=== PATIENT | male | born 1985 | race Caucasian/White ===

== ENCOUNTER 2018-06-25 10:55 | Emergency (ER) | payer BC ==
[~2018-06-25] VITALS: Ht 182.9 cm; Wt 84.1 kg
[2018-06-25 11:05] VITALS: Ht 182.9 cm; Wt 84.1 kg
[2018-06-25 17:43] VITALS: BP 144/70
== END 2018-06-25 17:30 | disposition other institution (70) ==
LOC: D.ER 10:55
DX: S42.002A Fracture of unspecified part of left clavicle, initial encounter for closed fracture (principal); S42.102A Fracture of unspecified part of scapula, left shoulder, initial encounter for closed fracture; V19.9XXA Pedal cyclist (driver) (passenger) injured in unspecified traffic accident, initial encounter; Y93.89 Activity, other specified; Y92.89 Other specified places as the place of occurrence of the external cause; S80.02XA Contusion of left knee, initial encounter

== ENCOUNTER 2019-04-22 09:33 | Day surgery (SDC) | payer BC ==
[~2019-04-22] VITALS: Ht 182.9 cm; Wt 88.5 kg
[2019-04-22 11:00] VITALS: BP 130/93; Ht 182.9 cm; Wt 88.5 kg
[2019-04-22] MEDS ORDERED: HYDROCODON-ACE1 EAC7 PO (16:25)
[2019-04-22] MEDS ORDERED: KEFLEX500 MG PO (16:26)
--- NOTE | 2019-04-22 17:25 | NUR ---
1626-REC'D FROM SURGERY. AWAKE AND ALERT,DRESSING TO LEFT HAND CDI. CAP REFILL WNL, ABLE TO WIGGLE DIGITS.VSS. PAIN CONSISTENT TO SURGERY. SPOUSE AT BEDSIDE,CL IN EASY REACH.
--- NOTE | 2019-04-22 17:26 | NUR ---
2795-FULL LIQUID TRAY TO ROOM.
--- NOTE | 2019-04-22 17:26 | NUR ---
1710-DISCHARGE CRITERIA MET. REMOVED IV FROM LEFT HAND WITH CATH INTACT,DISPOSED INTO SHARPS,COVERED SITE WITH BANDAID. BANDAGE CDI,CAP REFILL WNL,ABLE TO WIGGLE DIGITS. PAIN CONSISTENT TO SURGERY. VSS. REVIEWED DISCHARGE INSTRUCTIONS WITH PT,SPOUSE AT BEDSIDE.VERBALIZED UNDERSTANDING WITHOUT QUESTIONS OR CONCERNS. ESCORTED OUT VIA W/C WITH SPOUSE AWAITING TO DRIVE HOME.
--- NOTE | 2019-04-25 12:01 | OP ---
PATIENT NAME: RICARDO HUNT MEDICAL RECORD: [id number] :85 LOCATION:[facility] ADMISSION DATE: SURGEON: ERNIE HEWITT DO DATE OF OPERATION: 04/22/2019 PROCEDURE PERFORMED: Right fifth metacarpal closed reduction and percutaneous pinning. PREOPERATIVE DIAGNOSIS: Right fifth metacarpal neck fracture. POSTOPERATIVE DIAGNOSIS: Right fifth metacarpal neck fracture. INDICATIONS: Mr. Hunt is a 34-year-old male, who hit a metal door and sustained a fifth metacarpal neck fracture, was displaced and angulated greater than 50 degrees. I informed him of the risks and benefits of the procedure including infection, bleeding, damage to nerves or vessels, need for further surgery, displacement of fracture and that if we did not fix it, he would have an angulated hand and he may lose some extension and motion of the finger. I also informed him of the risk of malunion, nonunion, malrotation of that finger. He was okay with that and signed the consent. SURGEON: Ernie Hewitt DO DESCRIPTION OF PROCEDURE: The patient received ulnar block by anesthesia in the preoperative area and was then taken to the operative suite, given TIVA. The right upper extremity was then prepped and draped in sterile fashion. Time-out was performed. Everyone was in agreement with the correct side, site, patient, and procedure. Reduction maneuver was then made. The pin was placed retrograde from the ulnar side through the fracture, across it and then a second pin was attempted from proximal and distal and could not quite catch the head like I wanted to, so another retrograde pin was placed on the radial side of the metacarpal head and it went right down the shaft of the fifth metacarpal holding the fracture nicely with the other pin. The pins were then bent and x-rays were taken, AP and oblique, anterolateral and confirming good position of the fracture, good reduction held. The pins were then bent. Adaptic were placed over them, and he was placed in the ulnar gutter splint. He was awakened and taken back to outpatient in stable condition. BLOOD LOSS: Minimal. COMPLICATIONS: None. TRANSINT:[id number] Voice Confirmation ID: [id number] DOCUMENT ID: [id number] ERNIE HEWITT DO at 1203 CC: [id number] DICTATION DATE: 04/22/19 1622 [employer] PROFESSIONAL: 04/23/19 0253 [facility] 04/22/19 [address] [place] [address]
== END 2019-04-22 17:10 | disposition home or self-care (01) ==
LOC: D.OPS 09:33 → D.PAN 12:00 → D.OPS 17:10
PROVIDERS: ATTEND Orthopaedic Surgery
DX: S62.306A Unspecified fracture of fifth metacarpal bone, right hand, initial encounter for closed fracture (principal); X58.XXXA Exposure to other specified factors, initial encounter